=== PATIENT | female | born 1975 | race Caucasian/White ===

== ENCOUNTER → 2017-06-13 | Day surgery (SDC) | payer BC ==
[~2017-06-13] MED LIST: ACETAMINOPHEN 1000 MG/100 ML 100 ML IV ONE; DIFL150T PO; LACTATED RINGER'S 1000 ML INJ 1,000 ML ONE; LIDOCAINE 1%/EPINEPHrine 1:100,000 SOLN 30 ML VIAL ONE; MAGICADU2 SWISH-SWAL; MIDAZOLAM HCL 2 MG/2 ML VIAL ONE; ONDANSETRON HCL 4 MG/2 ML VIAL IV PUSH ONE; PROPOFOL 200 MG/20 ML AMP IV ONE; VALA500T PO; VALT1TAB PO; ZITH500T PO; ceFAZolin 2 GM PREMIX 50 ML ONE
--- NOTE | 2017-06-13 08:39 | PD.OP ---
cc: Norbert Simpson MD Operative Report Date of Surgery: June 13, 2017 Preoperative Diagnosis: Right breast bloody nipple discharge Postoperative Diagnosis: Same Procedure: Right breast subareolar resection of ducts Anesthesia: General with laryngeal mask Surgeon: Norbert Simpson [employer] Man(s): Tessa Operation and Findings: Indications for procedure Is a very pleasant otherwise healthy 41-year-old woman who is experienced intermittent bloody nipple drainage from the right nipple areolar complex. She experienced a dark color change beneath the nipple areolar complex and when she squeezed the area blood squirted out. She underwent mammography and ultrasonography which demonstrated retroareolar cystic mass with a solid component. Further imaging was recommended but declined by her insurance. Discussion regarding options resulted in the decision to proceed with subareolar resection of the ducts. Intraoperative findings Removal of subareolar dense breast tissue. Specimen sent with short stitch superior anterior and a long stitch lateral posterior. Additional excision of specific ductal tissue as identified by lacrimal probe through nipple/duct where bloody drainage was expressible. All tissue sent to pathology. Estimated blood loss less than 3 mL. Description of procedure in detail Patient was identified as Tarah Noriega, taken to the operating room and placed in a supine position. Sequential compression devices were placed on bilateral lower extremities. Following induction of adequate general anesthesia with a laryngeal mask the right breast was prepped and draped in usual sterile fashion with Betadine. A timeout procedure was performed. Following completion timeout procedure everyone's satisfaction within the room the nipple was compressed and bloody nipple drainage was identified through a superior duct and the nipple. This was marked with a marking pen. A infra-areolar periareolar curvilinear proposed incision was made with a marking pen and local anesthetic was infiltrated judiciously beneath the proposed incision and around the subareolar position of the breast. The incision was carried out with a scalpel and hemostasis control with a photon blade. Using the photon blade subareolar resection of ductal tissue was performed. Specimen was removed and marked with a short stitch superior anterior and long stitch lateral posterior. Further manipulation of the subareolar remaining tissue resulted in persistent old brown bloody drainage from the previously identified duct. Using a lacrimal probe through this duct to identify the area of concern additional breast tissue was excised around the distal tip of the lacrimal probe. Allowed for identification of cystic dilatation of the duct with bloody fluid within it. The specimen was sent separately to pathology. Wound was irrigated copiously with saline. Small bleeding points were controlled with the photon blade. Local anesthetic was placed within the wound and the wound was closed to approximate the space using interrupted 3-0 Vicryl sutures. 3-0 Vicryl was placed in the deep dermis and subcutaneous tissue. Skin was approximated with a running 4-0 Monocryl subcuticular suture. Dressings were applied with Mastisol half-inch brown Steri-Strips 4 x 4 gauze and Tegaderm. The patient tolerated the procedure without apparent complication. Sponge needle and instrument counts were correct at the end of the case. The patient was transported to PACU in stable condition. Norbert Simpson MD June 13, 2017 08:39
== END | disposition home or self-care (01) ==
LOC: ESDC 06:13
PROVIDERS: ATTEND Surgery Trauma Surgery
DX: N64.52 Nipple discharge (principal)
CPT/HCPCS: 00400; 19120; 88307; 88341; 88342; J0131; J0690; J2250; J2405; J3010; J7120